=== PATIENT | female | born 1980 ===

== ENCOUNTER 2018-06-08 16:40 | Outpatient (CLI) | payer OTHER | END 2018-06-08 18:38 | disposition home or self-care (01) | LOC: EDBD 16:40 → RAD 16:40 | DX: M54.2 Cervicalgia (principal) ==

== ENCOUNTER 2018-06-09 12:29 | Outpatient (CLI) | payer OTHER | END 2018-06-09 14:52 | disposition home or self-care (01) | LOC: LAB 12:29 | DX: R51 Headache (principal); R42 Dizziness and giddiness; Z00.00 Encounter for general adult medical examination without abnormal findings ==